=== PATIENT | female | born 1995 | race Caucasian/White ===

== ENCOUNTER 2017-04-08 20:01 | Emergency (ER) | payer BC, OTHER ==
[~2017-04-08] VITALS: Ht 162.6 cm; Wt 62.6 kg
[2017-04-08 20:09] VITALS: BP 110/58
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
--- NOTE | 2017-04-08 20:21 | NUR ---
FRANCIS Luna at bedside for further eval.
--- NOTE | 2017-04-08 20:24 | NUR ---
pt refusing any tx at this time. pt advised to have wound cleaned and have xrays performed, but pt continues to refuse. FRANCIS Luna notified, at bedside talking w/ pt.
--- NOTE | 2017-04-08 20:25 | NUR ---
Pt refusing any further tx at this time, AOx4, ambulatory w/ steady gait, speaking full & complete sentences. pt walking out of ER, refusing to speak w/ MD. Pt eloped. FRANCIS Luna notified.
== END 2017-04-08 20:25 | disposition left against medical advice (07) ==
LOC: ER 20:05
DX: S80.12XA Contusion of left lower leg, initial encounter (principal); S60.512A Abrasion of left hand, initial encounter; I10 Essential (primary) hypertension; F11.10 Opioid abuse, uncomplicated; F41.9 Anxiety disorder, unspecified; F17.200 Nicotine dependence, unspecified, uncomplicated; V89.2XXA Person injured in unspecified motor-vehicle accident, traffic, initial encounter; Y93.89 Activity, other specified; Y92.413 State road as the place of occurrence of the external cause; Y99.8 Other external cause status
CPT/HCPCS: 99281; A4606; Z7502; Z7610

== ENCOUNTER 2019-10-18 22:05 | Emergency (ER) | payer OTHER, MEDICAID ==
[~2019-10-18] VITALS: Ht 162.6 cm; Wt 54.4 kg
[2019-10-18] MEDS ORDERED: HYDROCODONE/APAP 10/325MG 1 EA TABLET PO ONE (22:30)
[2019-10-18] MEDS ORDERED: SULFAMETH/TRIMETH 800/160 MG 1 UDTAB TABLET PO ONE (22:30)
[2019-10-18] MEDS ORDERED: OLANZAPINE 5 MG TABLET PO ONE (22:30)
[2019-10-18] MEDS ORDERED: HYDROCODONE/APAP 10/325MG 1 EA TABLET ONE (22:37)
[2019-10-18] MEDS ORDERED: SULFAMETH/TRIMETH 800/160 MG 1 UDTAB TABLET ONE (22:37)
[2019-10-18] MEDS ORDERED: OLANZAPINE 5 MG TABLET ONE (22:37)
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
[2019-10-18 22:51] VITALS: BP 121/76
== END 2019-10-18 22:54 ==
LOC: ER 22:06
DX: T14.8XXA Other injury of unspecified body region, initial encounter (principal); F15.10 Other stimulant abuse, uncomplicated; F11.10 Opioid abuse, uncomplicated; R44.0 Auditory hallucinations; I10 Essential (primary) hypertension; X58.XXXA Exposure to other specified factors, initial encounter; Y93.89 Activity, other specified; Y92.89 Other specified places as the place of occurrence of the external cause; Y99.8 Other external cause status
CPT/HCPCS: 99284; A6403

== ENCOUNTER 2020-12-06 04:03 | Emergency (ER) | payer MEDICAID, OTHER ==
[~2020-12-06] VITALS: Ht 162.6 cm; Wt 54.4 kg
--- NOTE | 2020-12-06 04:06 | NUR ---
PT BIBRA FOR HEROIN ABUSE. PT GIVEN NARCAN OFFICE RECEPTIONIST. PT PLACED IN BED 11 ON HUMAN RELATIONS MANAGER AND PULSE OX. PT SAT 100%, WILL CONTINUE TO MONITOR.
--- NOTE | 2020-12-06 06:00 | NUR ---
PT AWAKE, ALERT AND AMBULATORY WITH STEADY GAITS. MEDICALLY STBALE FOR D/C PER MD. Patient discharged to home in stable condition. Written and verbal after care instructions given. Patient verbalizes understanding of instruction.
[2020-12-06 06:04] VITALS: BP 128/85
== END 2020-12-06 06:05 | disposition home or self-care (01) ==
LOC: ER 04:07
DX: T40.1X1A Poisoning by heroin, accidental (unintentional), initial encounter (principal); I10 Essential (primary) hypertension; Z59.0 Homelessness; Y92.89 Other specified places as the place of occurrence of the external cause

== ENCOUNTER 2021-01-12 19:20 | Emergency (ER) | payer OTHER ==
[~2021-01-12] VITALS: Ht 162.6 cm; Wt 54.4 kg
[2021-01-12 19:30] VITALS: BP 132/75
[2021-01-12] MEDS ORDERED: SULFAMETH/TRIMETH 800/160 MG 1 UDTAB TABLET ONE (20:24)
[2021-01-12] MEDS ORDERED: SULF1TAB48 PO (20:28)
[2021-01-12] MEDS ORDERED: SULFAMETH/TRIMETH 800/160 MG 1 UDTAB TABLET PO ONE (20:30)
== END 2021-01-12 20:38 ==
LOC: EDUNIT# 19:20 → ER 19:24
DX: T81.49XA Infection following a procedure, other surgical site, initial encounter (principal); L92.8 Other granulomatous disorders of the skin and subcutaneous tissue; I10 Essential (primary) hypertension; Z59.0 Homelessness; Z02.89 Encounter for other administrative examinations
CPT/HCPCS: 99283; A6253